=== PATIENT | female | born 1955 | race Caucasian/White ===

== ENCOUNTER 2023-01-22 12:43 | Emergency (ER) | payer MEDICARE, OTHER, SELFPAY ==
[2023-01-22 12:44] VITALS: BP 162/94; PULSE 83; RESP 16; TEMP 36.6; O2SAT 98; BMI 29.5
[2023-01-22] MEDS: Lidocaine 1% (20 ml mdv) 20 ML Vial INFILT (13:55)
[2023-01-22] MEDS: Amox/Clavulanate 875 MG Tablet PO (13:55)
--- NOTE | 2023-01-22 15:46 | EX.ED.UPPERE ---
HPI History of Present Illness HPI Narrative: Patient presents with a dog bite to her left forearm that occurred today. Patient states she was mowing her yard when somebody walked by with their dog on a leash. Patient states she went down to pet the dog and the dog bit her. Patient states the dog was acting normally. Patient states she does not know the dog or the owners of the dog. Patient states her last tetanus is up-to-date. Patient does not know of the dog's immunizations are up-to-date. Patient denies any paresthesias or weakness. Patient states she cleaned the wound and applied pressure dressing. Chief Complaint: Bite Informant: patient Occured/Mechanism Comment: Dog bite Onset/Context/Timing Onset: Today Context: Sudden Onset Timing: Continuous Location: Left forearm Current Severity: Gone Associated Symptoms Associated Symptoms: Negative for Parasthesia, Weakness or Loss of Funtion Narrative Tetanus Immunization: <5 years PFSH PFSH Medical History no medical history Home Medications Acyclovir 1 tab PO DAILY 12/30/14 [History Last Taken Unknown] K-Dur 1 tab PO DAILY 12/30/14 [History Last Taken Unknown] hydrochlorothiazide 12.5 mg capsule 1 tab PO DAILY 12/30/14 [History Last Taken Unknown] lisinopril 5 mg tablet 1 tab PO DAILY 12/30/14 [History Last Taken Unknown] levothyroxine 100 mcg tablet 100 mcg PO DAILY 01/03/15 [History Last Taken Unknown] amoxicillin 875 mg-potassium clavulanate 125 mg tablet 875 mg PO Q12H #20 TABLETS 01/22/23 [Rx Last Taken Unknown] Allergy/AdvReac Type Severity Reaction Status Date / Time fluconazole [From Diflucan] Allergy Hives Verified 01/22/23 12:46 adhesive tape AdvReac Rash Verified 01/22/23 12:46 Sulfa (Sulfonamide AdvReac Nausea/Vom/ Verified 01/22/23 12:46 Antibiotics) Diarrhea Social History Smoking Status: Never smoker ROS ROS ED Constitutional Constitutional ED: Denies chills or fever(s) Eyes Eyes: Denies blurry vision or change in vision ENT ENT ED: Denies rhinorrhea or sore throat Cardiovascular Cardiovascular: Denies chest pain or palpitations Respiratory/Chest Respiratory/Chest: Denies cough or dyspnea Gastrointestinal Gastrointestinal: Denies nausea or vomiting Genitourinary Genitourinary ED: Denies dysuria or hematuria Musculoskeletal Musculoskeletal: Denies back pain or neck pain Integumentary Denies abscess or rash Neurologic Neurologic: Denies headache(s) or weakness Allergic/Immunologic Allergic/Immunologic ED: Denies mouth swelling or urticaria EXAM Physical Exam Const Vital Signs: 01/22/23 12:44 Temperature 98 F Temperature Source Temporal Pulse Rate 83 Respiratory Rate 16 Blood Pressure 162/94 H Blood Pressure Mean 116 Pulse Ox 98 Oxygen Delivery Method Room Air Positive well nourished and well developed General Appearance ED: well developed and NAD HEENT Reports moist mucous membranes Neck full ROM and supple Neuro oriented x3, CN's II-XII intact bilaterally, moves all extremities, no focal motor deficits and no sensory deficits noted Sensorium / Orientation: alert Motor Exam: strength 5/5 throughout Skin Skin Narrative: There is a 2 cm full-thickness laceration over the dorsal/ulnar aspect of the left mid to proximal forearm. There is moderate gapping of the wound margins. There is loss of tissue over the superficial skin. There is mild bleeding. There are other superficial abrasions over the dorsal and radial aspects of the left mid forearm. There is no bony crepitance or step-off. There is no obvious deformity. There is good range of motion. There is minimal bleeding. Radial pulses are equal bilaterally. Sensation was intact to light touch in all digits. Capillary refill was less than 2 seconds in all digits. Strength is 5/5 in the radial, median, and ulnar areas. Sensation was intact to light touch in the radial, median, and ulnar areas. MDM MDM MDM Narrative Medical decision making narrative: The full-thickness laceration was cleaned and irrigated with copious amounts normal saline. The wound was anesthetized with 1% plain lidocaine locally. Because of the loss of superficial tissue, 2 simple interrupted 4-0 Vicryl sutures were placed in the subcutaneous tissue. Bacitracin dressing was applied. Patient tolerated procedure well. Patient was given a dose of Augmentin here. Patient was given a prescription for Augmentin. Patient was instructed to take Tylenol or ibuprofen as needed for pain. Patient understood and was agreeable with the plan. All questions were answered. Discharge Plan Triage Chief Complaint: Bite ED Provider: Joshua Fitzgerald Dx/Rx/DC Orders Clinical Impression: Dog bite of left forearm, Laceration of left forearm Instructions: ED Dog Bite Prescriptions: New amoxicillin-pot clavulanate [amoxicillin-pot clavulanate] 875-125 mg tablet 875 mg PO Q12H Qty: 20 0RF No Action Acyclovir 800 MG 1 tab PO DAILY hydrochlorothiazide 12.5 MG capsule 1 tab PO DAILY lisinopril 5 MG tablet 1 tab PO DAILY K-Dur 20 MEQ 1 tab PO DAILY levothyroxine 100 MCG tablet 100 mcg PO DAILY Primary Care Provider: Michael Dai Referrals: Michael Dai DO [Primary Care Provider] - 5-7 Days Disposition Disposition: Home, Self Care
== END 2023-01-22 16:07 | disposition home or self-care (01) ==
PROVIDERS: Emergency Provider Emergency Medicine; PCP Student in an Organized Health Care Education/Training Program; Visit Provider Emergency Medicine
DX: S51.812A Laceration without foreign body of left forearm, initial encounter (principal); W54.0XXA Bitten by dog, initial encounter
CPT/HCPCS: 12001; 99282